=== PATIENT | female | born 1985 | race Caucasian/White ===

== ENCOUNTER 2017-09-21 00:04 | Inpatient (IN) | payer OTHER ==
[2017-09-21] MEDS ORDERED: AMPICILLIN SODIUM 2 GM VIAL ONE (01:50)
[2017-09-21] MEDS ORDERED: FENTANYL/BUPIVACAINE/NS/PF - PCEA - 50 ML DISP.SYRIN EP ONE (01:51)
[2017-09-21] MEDS ORDERED: OXYTOCIN 20 UNITS in 0.9% NS 20 UNIT/1,000 ML INFUS.BAG IV ONE ×2 (02:17→04:22)
[2017-09-21] MEDS ORDERED: LIDOCAINE HCL 1% PRESERVATIVE FREE - 30ML VIAL ONE (02:17)
--- NOTE | 2017-09-21 02:24 | HP ---
Past Medical History - Primary Care Physician PCP:: Benjie Sky - Admission Chief Complaint: 32yo P 1 @ 39wks with ctx, no VB, no LOF, + FM History of Present Illness: 1. 2007 c/section, desires TOLAC 2. GBS + for Ampicillin prophylaxis 3. h/o Asthma - on Adwier, no attacks in , no h/o incubation, or IV steroids History Source: Patient, Medical Record Limitations to Obtaining History: No Limitations - Past Medical History Pulmonary: Yes: Asthma (on Adwier, no attacks in , no h/o incubation, or IV steroids) Hepatobiliary: Yes: Cholelithiasis ...: 3 ...Term: 1 (c/s for NRFHR) ...Spon : 1 ... Weeks Gestation by Dates: 39 ...EDC by Dates: 09/28/17 - Past Surgical History Past Surgical History: Yes: Cholecystectomy (LSC) Hx Myomectomy: No Hx Transabdominal Cerclage: No - Advance Directives Advance Directives: Yes: Living Will - Smoking History Smoking history: Never smoked Aproximately how many cigarettes per day: 0 - Alcohol/Substance Use Hx Alcohol Use: Yes (OCCASSIONALLY.) History of Substance Use: reports: None - Social History History of Recent Travel: No Home Medications - Allergies Allergies/Adverse Reactions: Allergies Allergy/AdvReac Type Severity Reaction Status Date / Time cat dander Allergy Mild Verified 09/21/17 02:12 dog dander Allergy Mild Verified 09/21/17 02:12 cats,dogs Allergy Mild Itching Uncoded 09/21/17 02:12 - Home Medications Home Medications: Ambulatory Orders Vitamins (Sjr) - 1 tab PO DAILY 08/19/17 Physical Exam - Maternity Constitutional: Yes: Well Nourished Eyes: Yes: WNL HENT: Yes: WNL Neck: Yes: WNL, Supple, Trachea Midline Cardiovascular: Yes: WNL, Regular Rate and Rhythm Lungs: Clear to auscultation Breast(s): Yes: WNL - Abdominal Exam/OB Fundal Height: 39 (EFW 7.5lb) Number of Fetuses: Single Presentation: Vertex Contractions: Yes Regularity: Regular (Q3min) Intensity: Mod/Strong Monitor Mode: External Heart Rate (range): 150's Heart Rate Location: Midline Category: I Accelerations: None Decelerations: None - Vaginal Exam/OB Vaginal Bleediing: No Speculum Exam: No Dilatation (cm): 9 Effacement (%): 100 Amniotic Membrane Status: Bulging Presentation: Vertex/Position Station: -3 - Physical Exam Musculoskeletal: Yes: WNL Extremities: Yes: WNL Integumentary: Yes: WNL Deep Tendon Reflex Grade: Normal +2 ...Motor Strength: WNL Psychiatric: Yes: WNL, Alert, Oriented Assessment/Plan 32yo P1 @39wks pRIOR C/SECTION IN labor Fetus originally Category 2 FHR Currently with Hydration and O2 - Category 1 Admit to L&D, admit labs Desires Epidural for pain management Anesthesia contacted Ampicillin for GBS prophylaxis Will ROM to access well being and place FSE monitor once comfortable with epidural
[2017-09-21] MEDS ORDERED: OXYTOCIN 10 UNITS/ML VIAL ONE (03:10)
[2017-09-21] MEDS ORDERED: PHENYLEPHRINE HCL 10 MG/1 ML SINGLE DOSE VIAL ONE (03:15)
[2017-09-21] MEDS ORDERED: ePHEDrine SULFATE 50 MG/1 ML AMPULE ONE (03:23)
[2017-09-21 03:32] LABS: ARTERIAL BLOOD GAS BASE EXCESS -0.7 meq/l (-2-2); ARTERIAL BLOOD GAS pH 7.27 (7.35-7.45)
[2017-09-21 03:33] LABS: VENOUS PC02 48.9 mmHg (38-52); VENOUS PH 7.33 (7.32-7.42); VENOUS PO2 22.6 mmHg (28-48)
[2017-09-21 03:35] LABS: ARTERIAL BLD GAS O2 SATURATION 10.1 % (90-98.9); ARTERIAL BLOOD GAS PCO2 63.7 mmHg (35-45); ARTERIAL BLOOD GAS PO2 11.4 mmHg (80-100)
[2017-09-21] MEDS ORDERED: KETOROLAC TROMETHAMINE 30 MG/1 ML VIAL ONE (04:07)
--- NOTE | 2017-09-21 04:07 | OP ---
Operative Note - Note: Operative Date: 09/21/17 Pre-Operative Diagnosis: 32yo P1 @ 39 wks with NRFHR Operation: Stat Repeat c/section. Called @ 2:50am. In OR 2:58 am. Insicion 3: 03 am. Delivery 3:05am Findings: 1. Blood clots in the uterine cavity 2. Viable male APGARs 9/9, Wt 7.13lb 3. Nl bilateral adnexa Post-Operative Diagnosis: Other (Same and Placental abruption) Surgeon: Nancy Austin Retail Associate: Nette Aguilar Anesthesiologist/INFORMATICS NURSE SPECIALIST: Jillian Thornton Anesthesia: Epidural Estimated Blood Loss (mls): 600 Drains, Volume Out (mls): 400 Fluid Volume Replaced (mls): 1,500 Operative Report Dictated: Yes
--- NOTE | 2017-09-21 04:07 | PN ---
Progress Note, Labor Vaginal Exam #1 Labor Exam Date: 09/21/17 Labor Exam Time: 02:40 Heart Rate (range): 150's + accels, very mild verriable decels Dilatation: 9cm af Effacement (%): 100 Amniotic Membrane Status: Ruptured (@ 2:43 am) Presentation: Vertex/Position Station: -3 Remarks: Initial impression that Patient is Fully dialated attempted 1 push head high, no progress realised 9cm, FSE placed @ 2:50 am noted prolonged FHR decell down to 80s Stat c/section called Patient informed and brought rapidly to the OR @ 2:58 am
[2017-09-21] MEDS ORDERED: oxyCODONE HCL 5 MG TABLET PO PRN (04:08)
[2017-09-21] MEDS ORDERED: BENZOCAINE 20% 57 GM BOTTLE TP PRN (04:08)
[2017-09-21] MEDS ORDERED: BENZOCAINE 28 GM HEMORRHOIDAL OINTMENT PR PRN (04:08)
[2017-09-21] MEDS ORDERED: WITCH HAZEL 50% (TUCKS) 40 PAD/JAR PAD TP PRN (04:08)
[2017-09-21] MEDS ORDERED: diphenhydrAMINE HCL 25 MG CAPSULE (FP) PO PRN (04:08)
[2017-09-21] MEDS ORDERED: METHYLERGONOVINE MALEATE 0.2 MG/1 ML AMP IM PRN (04:08)
--- NOTE | 2017-09-21 04:08 | PN ---
Delivery - Delivery Section: Repeat (Stat) Type of Anesthesia: Epidural EBL (cc): 600 Delivery, Single - Stages of Labor Date 1st Stage Initiatied: 09/21/17 Date of Delivery: 09/21/17 Time of Delivery: 03:05 Date Placenta Delivered: 09/21/17 Time Placenta Delivered: 03:07 Placenta: Yes: Expressed - Condition of Digital Research Analyst/Botany Technician Present: Yes Gender: Male Weight: 7 lb 2.08 oz Position: OT - 1 Minute Total Score: 9 5 Minutes Total Score: 9 Remarks - Remarks Remarks: Suspected placental abruption Stat c/section rosalino performed All tissue layers closed subsequent delivery
[2017-09-21] MEDS ORDERED: OXYTOCIN 20 UNITS in 0.9% NS 20 UNIT/1,000 ML INFUS.BAG IV SCH (04:15)
[2017-09-21 04:31] VITALS: BMI 38.5
[2017-09-21] MEDS: CEFAZOLIN 1 GM/D5W 1 GM/50 ML BAG IVPB SCH ×2 (09:32→17:30)
[2017-09-21] MEDS: DEXTROSE 5%-LACTATED RINGERS 1,000 ML IV SCH ×2 (09:32→20:33)
[2017-09-21] MEDS: IBUPROFEN 800 MG/8 ML IJ IVPB PRN ×2 (13:06→22:34)
[2017-09-21] MEDS ORDERED: ALBUTEROL SO4 18 GM HFA INHALER IH PRN (21:11)
[2017-09-22] MEDS: CEFAZOLIN 1 GM/D5W 1 GM/50 ML BAG IVPB SCH (02:08)
[2017-09-22] MEDS ORDERED: BISACODYL 10 MG SUPP.RECT PR PRN (04:08)
[2017-09-22] MEDS: DEXTROSE 5%-LACTATED RINGERS 1,000 ML IV SCH (04:27)
[2017-09-22] MEDS: IBUPROFEN 800 MG/8 ML IJ IVPB PRN (04:36)
[2017-09-22 09:28] LABS: BASO % 0.2 % (0-2.0); EOS % 1.3 % (0-4.5); HEMOGLOBIN 10.6 GM/dL (10.7-15.3); LYMPH % 9.5 % (8-40); MCH 28.3 pg (25.7-33.7); MCHC 33.3 g/dl (32.0-36.0); MEAN PLT VOLUME 8.9 fl (7.5-11.1); MONO % 5.8 % (3.8-10.2); NEUT % 83.2 % (42.8-82.8); PLATELET COUNT 184 K/MM3 (134-434); RBC 3.76 M/mm3 (3.60-5.2); RDW 13.7 % (11.6-15.6); WHITE BLOOD COUNT 16.2 K/mm3 (4.0-10.0)
[2017-09-22] MEDS: SIMETHICONE 80 MG TAB.CHEW (FP) PO PRN ×3 (09:55→20:32)
[2017-09-22] MEDS: IBUPROFEN 600 MG TABLET (FP) PO PRN ×3 (09:56→20:32)
[2017-09-22] MEDS: oxyCODONE HCL 5 MG TABLET PO PRN ×3 (09:57→20:32)
[2017-09-22] MEDS ORDERED: ACETAMINOPHEN 325 MG TABLET (FP) ONE (11:49)
[2017-09-22] MEDS ORDERED: ACETAMINOPHEN 325 MG TABLET (FP) PO PRN (12:12)
--- NOTE | 2017-09-22 12:43 | PN ---
Post Progress Note - Subjective Subjective: 32yo P2 s/p Emergency Repeat c/section for NRFHR and abruption She has no complains, currently the baby voiding, tolarating regular diet +flatus She has been using Ventolin pump for her Asthma Pain well controlled Post Day: 1 Type of Delivery: Repeat C/S (Stat) Vital Signs: Vital Signs Temperature 98.2 F 09/22/17 10:00 Pulse Rate 89 09/22/17 10:00 Respiratory Rate 18 09/22/17 10:00 Blood Pressure 94/43 09/22/17 10:00 O2 Sat by Pulse Oximetry (%) 100 09/21/17 07:30 Breast Exam: Yes: Soft Uterus: Yes: Fundus Firm Incision: Yes: Dressing dry and intact Abdomen/GI: Yes: Abdomen soft Lochia: Yes: Rubra Lochia, amount: Small Extremities: Yes: Calves non-tender Activity: Other (Sitting in the chair, ) - Labs Labs: CBC WBC 16.2 K/mm3 (4.0-10.0) H 09/22/17 07:45 RBC 3.76 M/mm3 (3.60-5.2) 09/22/17 07:45 Hgb 10.6 GM/dL (10.7-15.3) L D 09/22/17 07:45 Hct 32.0 % (32.4-45.2) L D 09/22/17 07:45 MCV 85.0 fl (80-96) 09/22/17 07:45 MCH 28.3 pg (25.7-33.7) 09/22/17 07:45 MCHC 33.3 g/dl (32.0-36.0) 09/22/17 07:45 RDW 13.7 % (11.6-15.6) 09/22/17 07:45 Plt Count 184 K/MM3 (134-434) 09/22/17 07:45 MPV 8.9 fl (7.5-11.1) 09/22/17 07:45 Neutrophils % 83.2 % (42.8-82.8) H 09/22/17 07:45 Lymphocytes % 9.5 % (8-40) 09/22/17 07:45 Monocytes % 5.8 % (3.8-10.2) 09/22/17 07:45 Eosinophils % 1.3 % (0-4.5) 09/22/17 07:45 Basophils % 0.2 % (0-2.0) 09/22/17 07:45 Assessment/Plan 32yo P2 s/p Repeat emergency c/section VSS, Afebrile She has mild to Moderate Asthma, now on Ventolin PRN Incentive spirometer ordered Encoraged ambulation Pain well controlled Baby for circumcision cont. routine care Follow Rh status
--- NOTE | 2017-09-22 15:57 | PN ---
Progress Note (short form) - Note Progress Note: Post op day#1.S/P C section under spinal anesthesia with duramorph uneventful.Patient stable and has little pain for which she is on medication.No any anesthesia related problem.Patient Dc from the anesthesia care.
[2017-09-23] MEDS: SIMETHICONE 80 MG TAB.CHEW (FP) PO PRN ×4 (01:40→17:35)
[2017-09-23] MEDS: IBUPROFEN 600 MG TABLET (FP) PO PRN ×5 (01:40→21:23)
[2017-09-23] MEDS: oxyCODONE HCL 5 MG TABLET PO PRN ×4 (01:41→17:35)
--- NOTE | 2017-09-23 06:15 | OP ---
DATE OF OPERATION: 09/21/2017 PREOPERATIVE DIAGNOSIS: A 32-year-old para 1 at 39 weeks, with prolonged bradycardia, nonreassuring heart rate, placental abruption, in active labor. POSTOPERATIVE DIAGNOSIS: A 32-year-old para 1 at 39 weeks, with prolonged bradycardia, nonreassuring heart rate, placental abruption, in active labor. PROCEDURE PERFORMED: Repeat stat section called at 2:50 a.m., in the operating room at 2:38 a.m., incision done at 3:03 a.m., delivery of the fetus at 3:05 a.m. SURGEON: Nancy Austin M.D. WARP KNIT OPERATOR: Nette Aguilar M.D. ANESTHESIOLOGIST: Jillian Thornton M.D. ANESTHESIA: Epidural. ESTIMATED BLOOD LOSS: 600 mL. URINE OUTPUT: 400 mL. INTRAVENOUS FLUIDS: The patient received 1500 mL of IV fluids. FINDINGS: 1. Blood clots in the uterine cavity. 2. A viable male with Apgars of 9 and 9, weight 7 pounds 13 ounces. 3. Normal bilateral adnexa. DESCRIPTION OF PROCEDURE: The patient was consented emergently, after noting bradycardia at 2:50 a.m., and the patient was rushed into the operating room at 2:58 a.m. She was prepped and draped in sterile fashion, and placed in the dorsal supine position. A Pfannenstiel incision was made at 3:03 a.m., and a scalpel was used to enter the fascia. Subsequently, the fascia was torn off the rectus abdominis muscle. The rectus abdominis muscle was manually split in the midline and the peritoneum was entered bluntly. An uterine incision was made with the scalpel and extended bilaterally manually. The was delivered at 3:05 a.m. and handed to awaiting pediatricians, a male with Apgars of 9 and 9. Subsequently, the placenta was expressed. The uterus was cleared of clots and debris, and repaired in 2 layers with 0 Biosyn. Excellent hemostasis was achieved. The abdomen was cleared of clots and debris, and the peritoneum was repaired with 0 Biosyn. Subsequently, muscle was reapproximated at the midline with 0 Biosyn. The fascia was repaired with 0 Vicryl. Subcutaneous space was reapproximated with 3 -0 Vicryl, and the skin was closed with 3-0 Biosyn. The abdominal incision was dressed in a sterile fashion. All instrument and sponge counts were correct x2. The patient was brought to the recovery room in stable condition. Keena POMPA/[id number] MTDD
[2017-09-23] MEDS: ACETAMINOPHEN 325 MG TABLET (FP) PO PRN ×2 (09:19→21:23)
--- NOTE | 2017-09-23 17:17 | PN ---
Post Progress Note - Subjective Subjective: Only c/o some itching in gluteal area Post Day: 2 Type of Delivery: Repeat C/S (Stat) Vital Signs: Vital Signs Temperature 98.0 F 09/23/17 09:00 Pulse Rate 95 H 09/23/17 09:00 Respiratory Rate 20 09/23/17 09:00 Blood Pressure 103/56 09/23/17 09:00 O2 Sat by Pulse Oximetry (%) 100 09/21/17 07:30 Breast Exam: Yes: Soft Uterus: Yes: Fundus Firm, Fundus below umbilicus, Non-tender Incision: Yes: Sutures intact Abdomen/GI: Yes: Abdomen soft, Passing flatus, Tolerating PO, Other ((+) BM) Lochia: Yes: Rubra Lochia, amount: Small Extremities: Yes: Calves non-tender, Edema (trace b/l) Perineum: Yes: Intact Activity: Ambulating - Labs Labs: CBC WBC 16.2 K/mm3 (4.0-10.0) H 09/22/17 07:45 RBC 3.76 M/mm3 (3.60-5.2) 09/22/17 07:45 Hgb 10.6 GM/dL (10.7-15.3) L D 09/22/17 07:45 Hct 32.0 % (32.4-45.2) L D 09/22/17 07:45 MCV 85.0 fl (80-96) 09/22/17 07:45 MCH 28.3 pg (25.7-33.7) 09/22/17 07:45 MCHC 33.3 g/dl (32.0-36.0) 09/22/17 07:45 RDW 13.7 % (11.6-15.6) 09/22/17 07:45 Plt Count 184 K/MM3 (134-434) 09/22/17 07:45 MPV 8.9 fl (7.5-11.1) 09/22/17 07:45 Neutrophils % 83.2 % (42.8-82.8) H 09/22/17 07:45 Lymphocytes % 9.5 % (8-40) 09/22/17 07:45 Monocytes % 5.8 % (3.8-10.2) 09/22/17 07:45 Eosinophils % 1.3 % (0-4.5) 09/22/17 07:45 Basophils % 0.2 % (0-2.0) 09/22/17 07:45 Other Findings, Remarks: Mild erythema in intergluteal fold, skin intact Assessment/Plan 26yo P1 s/p repeat LT C/S, doing well stable, afebrile. care instructions reviewed. Continue routine postop care. Fungal dermatitis of gluteal skin Ambulation encouraged.
[2017-09-23] MEDS ORDERED: SENNOSIDES/DOCUSATE COMBO (SENNA PLUS) TABLET (UD) PO PRN (22:00)
--- NOTE | 2017-09-23 22:50 | PN ---
Progress Note (short form) - Note Progress Note: Patient states desires circumcision for infant. Discussed risks including infection, bleeding, damage to tip of penis, and unsatisfactory result, resulting in surgical repair or repeat circumcision. Patient expressed understanding and consents to procedure. Reviewed infants chart, normal genitalia per heat treat inspector, Dr. Dmitriy Mora
[2017-09-24] MEDS: SIMETHICONE 80 MG TAB.CHEW (FP) PO PRN ×5 (03:09→21:11)
[2017-09-24] MEDS: ACETAMINOPHEN 325 MG TABLET (FP) PO PRN ×5 (03:10→21:11)
[2017-09-24] MEDS: oxyCODONE HCL 5 MG TABLET PO PRN ×2 (03:10→08:00)
--- NOTE | 2017-09-24 04:10 | PN ---
Post Progress Note - Subjective Subjective: Patient reports generalized itching on buttocks and abdomen. Reports tolerating oral intake without nausea or vomiting. Ambulating without dizziness. Denies fevers or chills. Pain well controlled with oral pain medication. without difficulty. Passing flatus. Post Day: 3 Type of Delivery: Repeat C/S (Stat) Vital Signs: Vital Signs Temperature 98.2 F 09/23/17 21:00 Pulse Rate 96 H 09/23/17 21:00 Respiratory Rate 20 09/23/17 21:00 Blood Pressure 111/60 09/23/17 21:00 O2 Sat by Pulse Oximetry (%) 100 09/21/17 07:30 Uterus: Yes: Fundus Firm, Fundus below umbilicus Incision: Yes: Sutures intact. No: Redness, Oozing Abdomen/GI: Yes: Abdomen soft, Abdominal Distention (softly, + BS), Tender ( incisional), Passing flatus, Tolerating PO Lochia: Yes: Serosa Lochia, amount: Small Extremities: Yes: Calves non-tender, Edema (+1) Activity: Ambulating - Labs Labs: CBC WBC 16.2 K/mm3 (4.0-10.0) H 09/22/17 07:45 RBC 3.76 M/mm3 (3.60-5.2) 09/22/17 07:45 Hgb 10.6 GM/dL (10.7-15.3) L D 09/22/17 07:45 Hct 32.0 % (32.4-45.2) L D 09/22/17 07:45 MCV 85.0 fl (80-96) 09/22/17 07:45 MCH 28.3 pg (25.7-33.7) 09/22/17 07:45 MCHC 33.3 g/dl (32.0-36.0) 09/22/17 07:45 RDW 13.7 % (11.6-15.6) 09/22/17 07:45 Plt Count 184 K/MM3 (134-434) 09/22/17 07:45 MPV 8.9 fl (7.5-11.1) 09/22/17 07:45 Neutrophils % 83.2 % (42.8-82.8) H 09/22/17 07:45 Lymphocytes % 9.5 % (8-40) 09/22/17 07:45 Monocytes % 5.8 % (3.8-10.2) 09/22/17 07:45 Eosinophils % 1.3 % (0-4.5) 09/22/17 07:45 Basophils % 0.2 % (0-2.0) 09/22/17 07:45 Assessment/Plan 32 yo POD # 3 s/p repeat CD for failed TOLAC/placental abruption, afebrile, vital signs stable, doing well 1. Continue routine postoperative care. 2. Encourage ambulation and incentive spirometer use 3. Continue oral pain medication 4. Patient with itching mild erythema, no skin lesions noted. will give topical cortisone 5. Anticipate discharge home postoperative day #4
[2017-09-24] MEDS ORDERED: HYDROCORTISONE 1% TOPICAL LOTION 118 ML BOTTLE TP PRN (06:38)
--- NOTE | 2017-09-24 06:48 | DS ---
Physical Exam-HOSPITAL FOOD SERVICE WORKER Vital Signs: Vital Signs Temperature 98.2 F 09/23/17 21:00 Pulse Rate 96 H 09/23/17 21:00 Respiratory Rate 20 09/23/17 21:00 Blood Pressure 111/60 09/23/17 21:00 O2 Sat by Pulse Oximetry (%) 100 09/21/17 07:30 Labs: CBC, BMP 09/22/17 07:45 Delivery - Delivery Section: Repeat (Stat) Type of Anesthesia: Epidural Episiotomy/Laceration: None EBL (cc): 600 Delivery, Single - Stages of Labor Date 1st Stage Initiatied: 09/21/17 Time 1st Stage Initiated: 14:00 Date of Delivery: 09/21/17 Time of Delivery: 03:05 Time Placenta Delivered: 03:07 Placenta: Yes: Expressed - Condition of Infant Draw String Knotter/Housing Manager Present: Yes Infant Gender: Male Weight: 7 lb 2.08 oz Position: OT Total Hours ROM (Hrs/Mins): 0h24m - 1 Minute Total Score: 9 5 Minutes Total Score: 9 - [place] Feeding Plan Initial Plan: Exclusive throughout hospitalization Discharge Summary Reason For Visit: LABOR ADMIT Current Active Problems delivery delivered (Acute) Failed trial of labor following previous , delivered (Acute) Placental abruption (Acute) Procedures: Principal: delivery Hospital Course: Patient presented in labor, for TOLAC deceleration noted, stat CD performed, placental abruption suspected POD # 1 able to ambulate, void, pass gas, tolerate oral intake Fulfilled all criteria for discharge home POD # 4 Condition: Good - Instructions Diet, Activity, Other Instructions: Physical activity Resume your normal everyday activity as tolerated no heavy lifting or exercise until seen by your surgeon. You may walk unlimited alexey of and climb stairs. You may resume driving the car when you feel safe and comfortable behind the wheel. No sexual activity as instructed. Wound care If you have a bandage, leave it on, and keep dry for 48-72 hours. After that time discard the outer bandage. If they are tapes on the skin under the out of bandage leave them in place. They will peel off in the next 7 to 10 days. Do Not Peel them off. You may shower the day after surgery. If there are tapes present on the skin, you may shower over them. Diet There are no dietary restrictions. Eat healthy, high-fiber foods. Drink 6 to 8 glasses of liquid each day. This will assist in keeping your bowels are regular. Pain management You may take Tylenol or acetaminophen or Ibuprofen (for example, Motrin, Advil etc.) from my pain prescription medication is ordered should be taken as prescribed for moderate to severe pain. Call MD for any of the following: Severe pain not relieved by medication Fever of 101 or higher Excessive bleeding or drainage on dressing Inability to urinate Disposition: HOME - Home Medications Comprehensive Discharge Medication List: Ambulatory Orders Vitamins (Sjr) - 1 tab PO DAILY 08/19/17
[2017-09-24] MEDS ORDERED: HYDROCORTISONE 1% TOPICAL CREAM 30 GM TUBE TP PRN (06:52)
[2017-09-24 07:40] LABS: BASO % 0.6 % (0-2.0); HEMATOCRIT 34.1 % (32.4-45.2); HEMOGLOBIN 11.2 GM/dL (10.7-15.3); MCH 28.1 pg (25.7-33.7); MCHC 32.9 g/dl (32.0-36.0); MEAN CELL VOLUME 85.3 fl (80-96); MEAN PLT VOLUME 9.2 fl (7.5-11.1); MONO % 6.4 % (3.8-10.2); PLATELET COUNT 252 K/MM3 (134-434); WHITE BLOOD COUNT 12.7 K/mm3 (4.0-10.0)
[2017-09-24] MEDS ORDERED: oxyCODONE HCL 5 MG TABLET ONE (07:57)
[2017-09-24] MEDS: IBUPROFEN 600 MG TABLET (FP) PO PRN ×3 (13:02→21:11)
[2017-09-25] MEDS: SIMETHICONE 80 MG TAB.CHEW (FP) PO PRN ×2 (02:56→08:33)
[2017-09-25] MEDS: ACETAMINOPHEN 325 MG TABLET (FP) PO PRN ×2 (02:56→08:33)
[2017-09-25] MEDS: IBUPROFEN 600 MG TABLET (FP) PO PRN ×2 (02:57→08:34)
--- NOTE | 2017-09-25 07:26 | PN ---
Progress Note (short form) - Note Progress Note: pod 4 doing well, no c/o CBC, BMP 09/24/17 06:00 Last Vital Signs Temp Pulse Resp BP Pulse Ox 98.1 F 87 20 123/73 100 09/24/17 21:13 09/24/17 21:13 09/24/17 21:13 09/24/17 21:13 09/21/17 07:30 abdomen soft, no distension , no cva incision dry, clean no calf tenderness plan d/c home . follow up office 1 week
[2017-09-25 08:01] VITALS: BP 103/56; PULSE 81; TEMP 97.6
--- NOTE | 2017-09-28 08:53 | PATH ---
Surgical Pathology Report Patient Name: KEDAR MELTON Med. Rec. #: [id number] /Age/Gender: 1985 (Age: 32) / F Account: [id number] Location: [facility] OBS/CLINIC SUPERVISOR Taken: 09/21/2017 Received: 09/21/2017 Reported: 09/28/2017 Physicians: Nancy Austin M.D. Specimen(s) Received PLACENTA Clinical History 39.0 weeks gestation. Term in labor. Nonreassuring heart rate. Final Diagnosis PLACENTA, DELIVERY: FOCALLY DISRUPTED THIRD TRIMESTER PLACENTA WITH THREE VESSEL UMBILICAL CORD AND UNREMARKABLE PLACENTAL MEMBRANES. Electronically Signed Jordan Gregory M.D. Gross Description The specimen is received fresh labeled placenta and is a 576 gram, 16 x 14 x 4 cm. placenta with attached membranes and umbilical cord. The attached membranes are glistening and translucent and insert marginally. The umbilical cord measures 12 cm. in length and averages 1.2 cm. in diameter. The cord inserts eccentrically, 5 cm. to the nearest margin. No true knots or strictures are identified. Cut surface of the umbilical cord reveals 3 vessels. The surface is scott-blue with minimal fibrin deposition and appropriate caliber vessels. The maternal surface is red-brown with focal defects. Sectioning reveals red-brown, spongy parenchyma. No lesions are identified. Food And Nutrition Supervisor sections are submitted in three cassettes as follows: 1- membrane rolls and umbilical cord; 2-3- full thickness sections of placenta. LAURI/09/24/2017 [facility]/09/24/2017
== END 2017-09-25 13:45 | disposition home or self-care (01) | DRG 540 ==
LOC: JDEL 00:04 → JLDR 00:50 → JDEL 00:50 → J3W 08:20
PROVIDERS: ADMIT Obstetrics & Gynecology; ATTEND Obstetrics & Gynecology
PROC: 10D00Z1 Extraction of Products of Conception, Low, Open Approach (ICD-10-PCS; principal; 2017-09-21)
DX: O76 Abnormality in fetal heart rate and rhythm complicating labor and delivery (principal); O45.93 Premature separation of placenta, unspecified, third trimester; O32.4XX0 Maternal care for high head at term, not applicable or unspecified; O34.211 Maternal care for low transverse scar from previous cesarean delivery; O99.824 Streptococcus B carrier state complicating childbirth; O26.893 Other specified pregnancy related conditions, third trimester; B36.8 Other specified superficial mycoses; J45.909 Unspecified asthma, uncomplicated; Z3A.39 39 weeks gestation of pregnancy; Z37.0 Single live birth
CPT/HCPCS: 36415; 36600; 82803; 85025; 88307-TC; 94010